=== PATIENT | male | born 1935 | race African-American/Black ===

== ENCOUNTER 2022-12-27 19:12 | Emergency (ER) | payer OTHER ==
[2022-12-27 19:39] VITALS: BP 133/74; PULSE 58; RESP 18; TEMP 97.1; BMI 24.9
[2022-12-27 21:31] LABS: EOS % 0.1 % (0-4.5); HEMOGLOBIN 14.2 GM/dL (11.7-16.9); LYMPH % 11.4 % (8-40); MCH 30.3 pg (25.7-33.7); MCHC 33.8 g/dl (32.0-35.9); MEAN CELL VOLUME 89.6 fl (80-96); MEAN PLT VOLUME 6.7 fl (7.5-11.1); MONO % 7.5 % (3.8-10.2); NEUT % 80.5 % (42.8-82.8); PLATELET COUNT 212 10^3/uL (134-434); RBC 4.69 M/mm3 (4.00-5.60); RDW 13.4 % (11.9-15.9); WHITE BLOOD COUNT 10.7 K/mm3 (4.0-10.0)
[2022-12-27 21:32] LABS: BASO % 0.5 % (0-2.0)
[2022-12-27 21:37] LABS: INR 1.34 (0.83-1.09); PROTHROMBIN TIME (PATIENT) 15.5 SEC (9.7-13.0)
[2022-12-27 21:42] LABS: POTASSIUM 3.5 mmol/L (3.5-5.1)
[2022-12-27 21:45] LABS: BLOOD UREA NITROGEN 16.1 mg/dL (7-18); CALCIUM 8.9 mg/dL (8.5-10.1)
[2022-12-27 21:46] LABS: ALBUMIN 3.7 g/dl (3.4-5.0)
[2022-12-27 21:49] LABS: CREATININE 1.3 mg/dL (0.55-1.3)
[2022-12-27 21:50] LABS: TOT PROT 7.4 g/dl (6.4-8.2)
[2022-12-28 00:33] LABS: EPI CELLS 12 /uL (0-25.1); HYALINE CASTS 0 /uL (0-3.1); PH,URINE 7.5 (5.0-8.0); URINE APPEARANCE CLEAR; URINE BACTERIA 14 /uL (0-1359); URINE BILIRUBIN NEGATIVE (NEGATIVE); URINE COLOR YELLOW; URINE GLUCOSE (UA) NEGATIVE (NEGATIVE); URINE KETONE NEGATIVE (NEGATIVE); URINE LEUK ESTERASE NEGATIVE (NEGATIVE); URINE NITRITE NEGATIVE (NEGATIVE); URINE PROTEIN NEGATIVE (NEGATIVE); URINE RBC 18 /uL (0-23.9); URINE UROBILINOGEN 0.2 mg/dL (0.2-1.0); URINE WBC 3 /uL (0-25.8)
[2022-12-28] MEDS ORDERED: POTASSIUM CHLORIDE TABS 20 MEQ TABLET.ER (FP) PO ONE ×2 (02:16→02:36)
== END 2022-12-28 02:49 | disposition home or self-care (01) ==
LOC: JER 19:12
DX: R55 Syncope and collapse (principal); R42 Dizziness and giddiness; R00.1 Bradycardia, unspecified
CPT/HCPCS: 36415; 70450-TC; 71045-TC-FY; 80053; 81003; 84484; 85025; 85610; 86850; 86900; 86901; 87086; 93005; 93010; 99285-25